=== PATIENT | female | born 1955 | race Asian ===

== ENCOUNTER 2021-07-07 04:41 | Day surgery (SDC) | payer BC ==
[2021-07-04 14:47] VITALS: BMI 27.8
[2021-07-07 10:50] VITALS: BP 137/70; PULSE 61; TEMP 98.5
== END 2021-07-07 11:00 | disposition home or self-care (01) ==
LOC: JASU-ENDO 04:41
PROVIDERS: ATTEND Internal Medicine Gastroenterology
PROC: 0DBP8ZX Excision of Rectum, Via Natural or Artificial Opening Endoscopic, Diagnostic (ICD-10-PCS; 2021-07-07)
PROC: 0DB98ZX Excision of Duodenum, Via Natural or Artificial Opening Endoscopic, Diagnostic (ICD-10-PCS; 2021-07-07)
PROC: 0DB78ZX Excision of Stomach, Pylorus, Via Natural or Artificial Opening Endoscopic, Diagnostic (ICD-10-PCS; 2021-07-07)
PROC: 0DB48ZX Excision of Esophagogastric Junction, Via Natural or Artificial Opening Endoscopic, Diagnostic (ICD-10-PCS; 2021-07-07)
PROC: 0DBC8ZX Excision of Ileocecal Valve, Via Natural or Artificial Opening Endoscopic, Diagnostic (ICD-10-PCS; principal; 2021-07-07 08:30)
DX: Z12.11 Encounter for screening for malignant neoplasm of colon (principal); K62.1 Rectal polyp; K57.30 Diverticulosis of large intestine without perforation or abscess without bleeding; K31.7 Polyp of stomach and duodenum; K21.00 Gastro-esophageal reflux disease with esophagitis, without bleeding; K29.80 Duodenitis without bleeding; K44.9 Diaphragmatic hernia without obstruction or gangrene; K29.40 Chronic atrophic gastritis without bleeding; K64.8 Other hemorrhoids; K63.5 Polyp of colon; K62.89 Other specified diseases of anus and rectum; Z80.0 Family history of malignant neoplasm of digestive organs

== ENCOUNTER 2021-07-11 10:20 | Emergency (ER) | payer BC ==
[2021-07-11 10:37] VITALS: BMI 25.4
[2021-07-11 12:11] LABS: BASO % 0.5 % (0-2.0); EOS % 1.8 % (0-4.5); HEMATOCRIT 34.5 % (32.4-45.2); HEMOGLOBIN 11.8 GM/dL (10.7-15.3); LYMPH % 33.5 % (8-40); MCH 29.6 pg (25.7-33.7); MCHC 34.1 g/dl (32.0-36.0); MEAN CELL VOLUME 86.6 fl (80-96); MEAN PLT VOLUME 9.6 fl (7.5-11.1); MONO % 6.6 % (3.8-10.2); NEUT % 57.6 % (42.8-82.8); PLATELET COUNT 241 10^3/uL (134-434); RBC 3.98 M/mm3 (3.60-5.2); RDW 13.6 % (11.6-15.6); WHITE BLOOD COUNT 8.1 K/mm3 (4.0-10.0)
[2021-07-11 12:19] LABS: INR 1.19 (0.83-1.09); PROTHROMBIN TIME (PATIENT) 14.3 SEC (9.7-13.0)
[2021-07-11 12:22] LABS: ACTIVATED PTT 32.3 SECONDS (25.2-36.5)
[2021-07-11 12:32] LABS: CALCIUM 10.2 mg/dL (8.5-10.1)
[2021-07-11 12:33] LABS: ANION GAP 2 MMOL/L (8-16); BLOOD UREA NITROGEN 10.3 mg/dL (7-18); CHLORIDE 111 mmol/L (98-107); CO2 29 mmol/L (21-32); GLUCOSE,RANDOM 83 mg/dL (74-106); SODIUM 141 mmol/L (136-145)
[2021-07-11 12:36] LABS: CREATININE 0.8 mg/dL (0.55-1.3)
[2021-07-11 13:51] LABS: MAGNESIUM 2.1 mg/dL (1.8-2.4)
[2021-07-11 13:58] LABS: N-TERMINAL BNP 61.3 pg/ml (5-125)
[2021-07-11 16:42] VITALS: BP 120/57; PULSE 57; TEMP 0
== END 2021-07-11 16:42 | disposition home or self-care (01) ==
LOC: JER 10:20
DX: K62.5 Hemorrhage of anus and rectum (principal)
CPT/HCPCS: 36415; 71046-TC-FY; 80048; 83735; 83880; 84484; 85025; 85610; 85730; 93005; 93010; 99284-25; C9803; U0003; U0005